=== PATIENT | female | born 1960 | race Caucasian/White ===

== ENCOUNTER 2019-10-01 21:16 | Observation (INO) ==
[2019-10-02 02:40] LABS: Bilirubin,Urine Negative (Negative); Blood,Urine Negative (Negative); Clarity,Urine Clear (Clear); Color,Urine Yellow (Yellow); Glucose,Urine (UA) Normal (Normal); Ketones,Urine Negative (Negative); Leukocyte Esterase,Urine Negative (Negative); Nitrite,Urine Negative (Negative); Protein,Urine Negative (Neg-Trace); Urobilinogen,Urine Normal (Normal)
[2019-10-02 03:00] LABS: Amphetamine Screen,Urine Negative ng/mL (Cutoff=1000); Barbiturate Screen,Urine Negative ng/mL (Cutoff=200); Benzodiazepines Screen,Urine Negative ng/mL (Cutoff=200); Cannabinoid Screen,Urine Negative ng/mL (Cutoff = 50); Cocaine Screen,Urine Negative ng/mL (Cutoff= 300); Opiate Screen,Urine Positive ng/mL (Cutoff=300); Phencyclidine Screen,Urine Negative ng/mL (Cutoff=25)
[2019-10-02] MEDS ORDERED: *HR* Acetaminophen w/Cod 300-30 mg 1 TAB TABLET PO PRN (03:45)
[2019-10-02] MEDS ORDERED: Albuterol 2.5 MG/3 ML NEBULIZER IH PRN (04:00)
[2019-10-02 05:10] LABS: Prothrombin Time 11.3 Seconds (9.4-12.1)
[2019-10-02 05:13] LABS: Activated Partial Thrombo Time 37.4 Seconds (26.0-36.0)
[2019-10-02 05:28] LABS: Alanine Aminotransferase 30 Units/L (7-52); Albumin/Globulin Ratio 1.7 (1.1-2.2); Alkaline Phosphatase 106 Units/L (34-104); Aspartate Amino Transferase 31 Units/L (13-39); BUN/Creatinine Ratio 19 (6-26); Bilirubin,Total 0.4 mg/dL (0.3-1.0); Blood Urea Nitrogen 12 mg/dL (8-23); Calcium 9.8 mg/dL (8.6-10.3); Carbon Dioxide 30 mEq/L (23-29); Chloride 101 mEq/L (98-107); Chol/HDL Ratio 4.5 (0-4.9); Cholesterol 225 mg/dL (< 200); Globulin 2.3 g/dL (2.4-3.5); Glucose 105 mg/dL (70-105); HDL Cholesterol 50 mg/dL (40-59); LDL Cholesterol,Calculated 136 mg/dL (0-99); LDL Cholesterol,Direct 137 mg/dL (75-193); Osmolality,Calculated 288 (280-300); Potassium 3.6 mEq/L (3.5-5.1); Sodium 139 mEq/L (136-145); Total Protein 6.3 g/dL (6.4-8.9); Triglycerides 196 mg/dL (< 150); eGFR For African Americans > 60 (> 60); eGFR For Non-African Americans > 60 (> 60)
[2019-10-02] MEDS ORDERED: Ibuprofen 800 MG TABLET PO ONE ×2 (05:59→18:44)
[2019-10-02] MEDS ORDERED: *HR* Dextrose 50 % in Water (Syg) 50 ML SYRINGE IVP PRN (06:00)
[2019-10-02] MEDS ORDERED: Dextrose Gel 15 GM/37.5 ML TUBE PO PRN ×2 (06:00)
[2019-10-02] MEDS ORDERED: D5% in Water 1,000 ML IVC PRN (06:00)
[2019-10-02] MEDS: Insulin LISPRO 300 UNITS/3 ML VIAL SQ SCH ×3 (07:58→17:06)
[2019-10-02] MEDS: Fenofibrate 54 MG TABLET PO SCH (08:40)
[2019-10-02] MEDS: Budesonide/Formoterol 160/4.5 1 PUFF INH IH SCH ×2 (08:55→20:13)
[2019-10-02 10:03] LABS: Estimated Average Glucose 134 mg/dl
[2019-10-02] MEDS ORDERED: Ondansetron ODT 4 MG TAB.RAPDIS PO PRN (10:53)
[2019-10-02] MEDS: Magnesium Oxide 400 MG TABLET PO SCH (15:19)
[2019-10-02] MEDS: *HR* LORazepam 0.5 MG TABLET PO SCH ×2 (15:19→20:14)
[2019-10-02] MEDS: Aspirin 81 MG TAB.CHEW PO SCH (15:19)
[2019-10-02] MEDS: Fluticasone Propionate Nasal 50 MCG/SPRAY BOTTLE NS SCH (20:15)
[2019-10-02] MEDS ORDERED: traZODone 50 MG TABLET PO SCH (21:00)
[2019-10-03] MEDS ORDERED: Ibuprofen 600 MG TABLET PO ONE (00:57)
[2019-10-03 07:43] VITALS: BP 165/87
[2019-10-03] MEDS: Budesonide/Formoterol 160/4.5 1 PUFF INH IH SCH (08:00)
[2019-10-03] MEDS: Insulin LISPRO 300 UNITS/3 ML VIAL SQ SCH (08:07)
[2019-10-03] MEDS: Fenofibrate 54 MG TABLET PO SCH (08:47)
[2019-10-03] MEDS: *HR* LORazepam 0.5 MG TABLET PO SCH (08:47)
[2019-10-03] MEDS: Magnesium Oxide 400 MG TABLET PO SCH (08:47)
[2019-10-03] MEDS: Aspirin 81 MG TAB.CHEW PO SCH (08:47)
[2019-10-03] MEDS: Fluticasone Propionate Nasal 50 MCG/SPRAY BOTTLE NS SCH (08:48)
[2019-10-03] MEDS ORDERED: Multivit/Ca/Min/Fe/FA 1 TAB TABLET PO SCH (09:00)
[2019-10-03] MEDS ORDERED: Loratadine 10 MG TABLET PO SCH (09:00)
[2019-10-03] MEDS ORDERED: RUXOLITINIB PHOSPHATE 5 MG PO SCH (09:00)
[2019-10-03] MEDS ORDERED: Ibuprofen 800 MG TABLET PO ONE (10:05)
== END 2019-10-03 12:11 | disposition home or self-care (01) ==
LOC: 3BNU → SUATTDRO 10-02 00:06
PROVIDERS: ADMIT Internal Medicine; ATTEND Internal Medicine